=== PATIENT | female | born 1950 | race Hispanic/Latino ===

== ENCOUNTER 2018-12-08 10:23 | Emergency (ER) | payer MEDICARE ==
[~2018-12-08] VITALS: Ht 149.9 cm; Wt 50.8 kg
[2018-12-08] MEDS ORDERED: LISINOPRIL10 MG PO (11:04)
--- NOTE | 2018-12-08 12:04 | Diagnostic Imaging Report ---
CT BRAIN [facility] HISTORY: Dizziness, fall COMPARISON: None. TECHNIQUE: Noncontrast axial scans were obtained from skull base to the vertex. Coronal and sagittal reconstructions obtained from the axial data. One or more of the following dose reduction techniques were used: Automated exposure control, adjustment of the mA and/or kV according to patient size, and/or utilization of iterative reconstruction technique. DISCUSSION: Scalp/Skull: Unremarkable. Brain sulci: Appropriate for patient's age. Ventricles: Normal in size and configuration. No hydrocephalus. Extra-axial spaces: No masses or fluid collections. Parenchyma: Mild periventricular white matter hypodensities are likely chronic microvascular ischemic changes. Otherwise, no mass, hemorrhage, or large vascular territory acute infarct. Dural sinuses: No abnormal densities. Sellar/Suprasellar region: Intact. Skull base: Intact. Incidental findings: Mild carotid siphon calcifications are present. IMPRESSION: 1. No acute intracranial abnormalities. 2. Mild supratentorial chronic microvascular ischemic change. Signed by: Dr. Gary Mcelroy M.D. on 12/08/2018 12:00 PM
--- NOTE | 2018-12-08 12:28 | Diagnostic Imaging Report ---
Radiographs of the sacrum/coccyx - 3 views HISTORY: Pain COMPARISON: None available. FINDINGS: Bones: Suspected nondisplaced fracture through the inferior aspect of the coccyx. Osseous alignment is within normal limits. Joints: Scattered degenerative change. No osseous erosion. Pseudarthrosis on the right at the lumbosacral junction. Soft tissues: The soft tissues appear unremarkable. IMPRESSION: Suspected nondisplaced fracture through the inferior aspect of the coccyx. Signed by: Dr. Walter Savgae M.D. on 12/08/2018 12:25 PM
--- NOTE | 2018-12-08 12:29 | Diagnostic Imaging Report ---
Radiographs of the left hip - 2 views HISTORY: Pain COMPARISON: None available. FINDINGS: Bones: No acute displaced fracture. Osseous alignment is within normal limits. Joints: Scattered degenerative change. No osseous erosion. Soft tissues: The soft tissues appear unremarkable. IMPRESSION: Scattered degenerative change. No osseous erosion. Signed by: Dr. Walter Savage M.D. on 12/08/2018 12:25 PM
--- NOTE | 2018-12-08 12:30 | Diagnostic Imaging Report ---
Radiographs of the right foot - 3 views HISTORY: Pain COMPARISON: None available. FINDINGS: Bones: No acute displaced fracture. Osseous alignment is within normal limits. Joints: Scattered degenerative change. No osseous erosion. Postsurgical change at the distal right first metatarsal. Chronic appearing deformity of the fourth and fifth toes. Soft tissues: The soft tissues appear unremarkable. IMPRESSION: Scattered degenerative change. No osseous erosion. Signed by: Dr. Walter Savage M.D. on 12/08/2018 12:27 PM
[2018-12-08 13:11] VITALS: BP 182/87
== END 2018-12-08 13:16 | disposition home or self-care (01) ==
LOC: FSED 10:23
DX: S00.83XA Contusion of other part of head, initial encounter (principal); S70.02XA Contusion of left hip, initial encounter; S90.121A Contusion of right lesser toe(s) without damage to nail, initial encounter; W10.8XXA Fall (on) (from) other stairs and steps, initial encounter; Y93.01 Activity, walking, marching and hiking; Y92.008 Other place in unspecified non-institutional (private) residence as the place of occurrence of the external cause; I10 Essential (primary) hypertension
CPT/HCPCS: 70450; 72220; 99284

== ENCOUNTER → 2019-04-22 | Outpatient (CLI) | payer MEDICARE, OTHER ==
[~2019-04-22] MED LIST: LISINOPRIL10 MG PO
--- NOTE | 2019-04-22 09:56 | Diagnostic Imaging Report ---
Exam: Bone mineral density study. History: 68-year-old female. Comparison: None. Discussion: Evaluation of the left hip and lumbar spine was performed utilizing DEXA Hologic bone densitometer. The study is technically adequate. The patient's fracture risk is compared to an age-matched control. Lumbar spine total bone mineral density: 0.741 gm/cm2, T-score is -2.8, Z-score is -0.9. No previous comparison. Left femoral neck bone mineral density: 0.6-1 g/cm2, T-score is -2.1, Z-score is -0.6. No previous comparison.. Impression: Bone mineralization by WHO Classification using T score is osteoporosis, fracture risk is high. <T score: NL = -1 or higher Osteopenia = -1 to -2.5 Osteoporosis = -2.5 or lower Z score: < - 1.5 concerning for path> Recommendations: Medical evaluation for secondary causes of low bone mineral density may be appropriate. Correlate clinically for the necessity and timing of the next bone mineral density study. National Osteoporosis Foundation recommendations: Initiate therapy to reduce fracture risk in postmenopausal women with -BMD t-scores below -2 by central DXA with no risk factors -BMD t-scores below -1.5 by central DXA with one or more risk factors (first deg relative with hip fracture, prior personal fracture, low body weight, smoking) -A prior vertebral or hip fracture AACE (Clinical Endocrinology) recommends treating the following: Postmenopausal women who have osteoporosis as diagnosed by fragility fractures or t scores -2.5 or below Postmenopausal women who have risk factors (including fh of hip fracture, low body weight, smoking, risk of falling, high bone turnover, advancing age) and borderline low BMD T scores of -1.5 or below Adequate intake of calcium (at least 1200mg/day) and vitamin D (400-800 IU/day). Regular weight bearing and muscle - strengthening exercises Avoid smoking and excessive alcohol Signed by: Reno Mccord on 04/22/2019 9:53 AM
--- NOTE | 2019-05-05 09:28 | Diagnostic Imaging Report ---
#[id number] - MGSCRBIL #BILATERAL DIGITAL SCREENING MAMMOGRAM WITH CAD: 04/22/2019 CLINICAL: Routine screening. Comparison is made to exam dated: 02/05/2017 mammogram - [facility]. Current study contains 4 films. There are scattered fibroglandular elements in both breasts. Current study was also evaluated with a Computer Aided Detection (CAD) system. Benign appearing calcifications are noted bilaterally. No significant masses, calcifications, or other findings are seen in either breast. IMPRESSION: BENIGN There is no mammographic evidence of malignancy. A 1 year screening mammogram is recommended. The patient will be notified by letter of the results. PAPITO VALLEJO M.D. ct/penrad:05/01/2019 10:21:54 Records Clerk: Lily MEIER)([place]), [facility] letter sent: Normal Exam Mammogram BI-RADS: 2 Benign
== END ==
LOC: DX 08:37
DX: Z12.31 Encounter for screening mammogram for malignant neoplasm of breast (principal); M89.9 Disorder of bone, unspecified; Z78.0 Asymptomatic menopausal state
CPT/HCPCS: 77067; 77080

== ENCOUNTER 2023-01-23 10:04 | Inpatient (IN) | payer MEDICARE, OTHER ==
[~2023-01-23] VITALS: Ht 149.9 cm; Wt 54.4 kg
[2023-01-23] MEDS ORDERED: FAMOTIDINE 20 MG/2 ML VIAL IV STA (11:19)
[2023-01-23] MEDS ORDERED: ONDANSETRON HCL INJ 2MG/ML 2ML 2 MG/ML VIAL IV STA (11:19)
[2023-01-23] MEDS ORDERED: SODIUM CHLORIDE 0.9% 1000ML 1,000 ML IV STA (11:19)
[2023-01-23 11:27] LABS: BASOPHILS # (AUTO) 0.1 (0.0-0.1); BASOPHILS % 0.6 % (0.0-1.0); EOSINOPHILS % 0.4 % (0.0-6.0); HEMATOCRIT 38.3 % (34.2-44.1); HEMOGLOBIN 14.2 g/dL (12.0-16.0); LYMPHOCYTES # (AUTO) 1.8 (1.0-3.2); LYMPHOCYTES % 22.3 % (18.0-39.1); MEAN CORPUSCULAR HEMOGLOBIN 29.6 pg (28-32); MEAN CORPUSCULAR HGB CONC 37.1 g/dL (31-35); MONOCYTES # (AUTO) 0.9 (0.2-0.8); MONOCYTES % 10.5 % (4.4-11.3); NEUTROPHILS # (AUTO) 5.4 (2.1-6.9); NEUTROPHILS % 65.7 % (38.7-80.0); PLATELET COUNT 273 x10e3/uL (140-360); RED BLOOD COUNT 4.79 x10e6/uL (3.6-5.1); RED CELL DISTRIBUTION WIDTH 11.7 % (11.7-14.4)
[2023-01-23] MEDS ORDERED: LIDOCAINE VISC 2% SOLN 15 ML UDC PO ONE (11:30)
[2023-01-23 11:36] LABS: ALBUMIN 4.4 g/dL (3.5-5.0); ALBUMIN/GLOBULIN RATIO 1.3 (0.8-2.0); ANION GAP 15.2 mmol/L (8-16); CALCIUM 9.8 mg/dL (8.4-10.2); CREATININE, SERUM 1.04 mg/dL (0.57-1.11); POTASSIUM 3.2 mmol/L (3.5-5.1)
[2023-01-23] MEDS ORDERED: IOPAMIDOL 370 MG/ML 100 ML INFUS..BTL INJ ONE (11:44)
[2023-01-23 13:30] LABS: CLARITY,URINE CLEAR (CLEAR); COLOR,URINE YELLOW (YELLOW); KETONES,URINE NEGATIVE (NEGATIVE); LEUKOCYTE ESTERASE ,URINE NEGATIVE (NEGATIVE); NITRITE,URINE NEGATIVE (NEGATIVE); PROTEIN,URINE DIPSTICK NEGATIVE (NEGATIVE); URINE UROBILINOGEN 0.2 mg/dL (0.2 - 1)
[2023-01-23] MEDS ORDERED: SODIUM CHLORIDE 0.9% 1000ML 1,000 ML IV SCH (13:30)
[2023-01-23] MEDS ORDERED: SODIUM CHLORIDE FLUSH 10 ML SYR INJ PRN (13:30)
[2023-01-23 13:34] LABS: BACTERIA,URINE FEW /HPF; EPITHELIAL CELLS,URINE FEW /LPF; WBC,URINE (MAN) 0-5 /HPF (0-5)
[2023-01-23] MEDS: ONDANSETRON HCL INJ 2MG/ML 2ML 2 MG/ML VIAL IV PRN (15:25)
[2023-01-23] MEDS: Morphine 2mg Syringe 2 MG/ML SYR IV PRN ×2 (15:26→22:04)
[2023-01-23 18:11] VITALS: BP 164/63; PULSE 69; RESP 18; TEMP 97.7; O2SAT 100
[2023-01-23] MEDS ORDERED: POTASSIUM CHLORIDE 20MEQ/100ML 200 ML IV ONE (18:15)
[2023-01-23] MEDS ORDERED: POTASSIUM CHLORIDE 20 MEQ TAB CR PO ONE ×2 (18:20→20:00)
[2023-01-23 18:55] LABS: LIPASE 38 U/L (8-78); SODIUM 128 mmol/L (136-145)
[2023-01-23] MEDS ORDERED: DEXTROSE 5% 1,000 ML IV STA (19:40)
[2023-01-23 20:00] VITALS: BP 146/63; PULSE 64; RESP 18; TEMP 98; O2SAT 100
[2023-01-23] MEDS ORDERED: DESMOPRESSIN ACETATE 4 MCG/ML VIAL IV ONE (20:00)
[2023-01-23 20:39] VITALS: BP 164/63; PULSE 69; RESP 18; TEMP 97.7; O2SAT 100
[2023-01-24 01:17] VITALS: BP 164/63; PULSE 69; RESP 18; TEMP 97.7; O2SAT 100
[2023-01-24 05:34] LABS: BASOPHILS # (AUTO) 0.1 (0.0-0.1); EOSINOPHILS # (AUTO) 0.1 (0.0-0.4); EOSINOPHILS % 0.8 % (0.0-6.0); HEMATOCRIT 31.9 % (34.2-44.1); HEMOGLOBIN 11.4 g/dL (12.0-16.0); LYMPHOCYTES # (AUTO) 1.4 (1.0-3.2); LYMPHOCYTES % 19.7 % (18.0-39.1); MEAN CORPUSCULAR HEMOGLOBIN 29.5 pg (28-32); MEAN CORPUSCULAR HGB CONC 35.7 g/dL (31-35); MEAN CORPUSCULAR VOLUME 82.4 fL (81-99); MONOCYTES # (AUTO) 0.7 (0.2-0.8); MONOCYTES % 10.3 % (4.4-11.3); NEUTROPHILS # (AUTO) 4.8 (2.1-6.9); NEUTROPHILS % 67.8 % (38.7-80.0); PLATELET COUNT 224 x10e3/uL (140-360); RED BLOOD COUNT 3.87 x10e6/uL (3.6-5.1); RED CELL DISTRIBUTION WIDTH 11.6 % (11.7-14.4)
[2023-01-24 05:53] LABS: ANION GAP 10.6 mmol/L (8-16); CALCIUM 8.5 mg/dL (8.4-10.2); CREATININE, SERUM 0.9 mg/dL (0.57-1.11); POTASSIUM 3.6 mmol/L (3.5-5.1)
[2023-01-24 06:16] LABS: MAGNESIUM 1.8 MG/DL (1.3-2.1); PHOSPHORUS 2.5 MG/DL (2.3-4.7)
[2023-01-24] MEDS ORDERED: DEXTROSE 5% 1,000 ML IV ONE (07:37)
[2023-01-24 07:54] VITALS: BP 145/62; PULSE 71; RESP 17; TEMP 97.8; O2SAT 100
[2023-01-24 08:00] VITALS: BP 145/62; PULSE 71; RESP 17; TEMP 97.8; O2SAT 100
[2023-01-24] MEDS ORDERED: POTASSIUM CHLORIDE 20 MEQ TAB CR PO ONE (08:00)
[2023-01-24] MEDS: POLYETHYLENE GLYCOL 3350 17 GM PACK PO SCH (09:00)
[2023-01-24 11:37] VITALS: BP 161/76; PULSE 68; RESP 18; TEMP 97.8; O2SAT 100
[2023-01-24] MEDS ORDERED: DEXTROSE 5% 1,000 ML IV SCH (13:00)
[2023-01-24] MEDS: LOSARTAN POTASSIUM 100 MG TAB PO SCH (14:20)
[2023-01-24] MEDS ORDERED: LOSARTAN POTAS100 MG PO (14:21)
[2023-01-24] MEDS: ONDANSETRON HCL INJ 2MG/ML 2ML 2 MG/ML VIAL IV PRN (15:13)
[2023-01-24] MEDS ORDERED: TRIAMTERENE-HCTZ1 EA PO (16:08)
[2023-01-24 16:39] VITALS: BP 166/63; PULSE 64; RESP 17; TEMP 97.8; O2SAT 100
[2023-01-24] MEDS ORDERED: MAGNESIUM OXIDE 400 MG TAB PO ONE (17:45)
[2023-01-24 20:00] VITALS: BP 164/67; PULSE 63; RESP 20; TEMP 97.8; O2SAT 94
[2023-01-24] MEDS ORDERED: SODIUM CHLORIDE 3% 100 ML IV ONE (20:00)
[2023-01-24] MEDS ORDERED: MELATONIN 5 MG TABLET PO SCH (21:00)
[2023-01-25] VITALS: BP 154/66; PULSE 62; RESP 20; TEMP 97.6; O2SAT 100
[2023-01-25 00:35] VITALS: BP 166/63; PULSE 64; RESP 17; TEMP 97.8; O2SAT 100
[2023-01-25 05:48] LABS: BASOPHILS # (AUTO) 0.1 (0.0-0.1); BASOPHILS % 1.4 % (0.0-1.0); EOSINOPHILS # (AUTO) 0.1 (0.0-0.4); EOSINOPHILS % 2.2 % (0.0-6.0); HEMOGLOBIN 12.2 g/dL (12.0-16.0); LYMPHOCYTES # (AUTO) 1.9 (1.0-3.2); MEAN CORPUSCULAR HEMOGLOBIN 29.4 pg (28-32); MEAN CORPUSCULAR HGB CONC 35.9 g/dL (31-35); MEAN CORPUSCULAR VOLUME 81.9 fL (81-99); MONOCYTES # (AUTO) 0.6 (0.2-0.8); NEUTROPHILS # (AUTO) 3.6 (2.1-6.9); NEUTROPHILS % 55.9 % (38.7-80.0); PLATELET COUNT 225 x10e3/uL (140-360); RED BLOOD COUNT 4.15 x10e6/uL (3.6-5.1); RED CELL DISTRIBUTION WIDTH 11.3 % (11.7-14.4)
[2023-01-25 06:22] LABS: ALBUMIN 3.4 g/dL (3.5-5.0); ALBUMIN/GLOBULIN RATIO 1.3 (0.8-2.0); ANION GAP 10.7 mmol/L (8-16); CALCIUM 8.8 mg/dL (8.4-10.2); CREATININE, SERUM 0.86 mg/dL (0.57-1.11); POTASSIUM 3.7 mmol/L (3.5-5.1)
[2023-01-25 09:44] VITALS: BP 152/83; PULSE 68; RESP 20; TEMP 98.1; O2SAT 100
[2023-01-25] MEDS: POLYETHYLENE GLYCOL 3350 17 GM PACK PO SCH (09:56)
[2023-01-25] MEDS: LOSARTAN POTASSIUM 100 MG TAB PO SCH (09:58)
[2023-01-25 10:00] VITALS: BP 152/83; PULSE 68; RESP 20; TEMP 98.1; O2SAT 100
[2023-01-25 13:13] VITALS: BP 148/72; PULSE 71; RESP 16; TEMP 97.4; O2SAT 100
[2023-01-25 20:00] VITALS: BP 182/76; PULSE 69; RESP 18; TEMP 97.6; O2SAT 100
== END 2023-01-25 20:50 | disposition home or self-care (01) | DRG 641 ==
LOC: ER 10:08 → ERHOLD 13:34 → MED/SURG 18:17
PROVIDERS: ADMIT Internal Medicine; ATTEND Internal Medicine
DX: E87.1 Hypo-osmolality and hyponatremia (principal); E87.6 Hypokalemia; R11.10 Vomiting, unspecified; K59.00 Constipation, unspecified; R33.9 Retention of urine, unspecified; I10 Essential (primary) hypertension; E87.8 Other disorders of electrolyte and fluid balance, not elsewhere classified; Z79.899 Other long term (current) drug therapy; Z90.49 Acquired absence of other specified parts of digestive tract; Z90.710 Acquired absence of both cervix and uterus
CPT/HCPCS: 0223U; 36415; 51700; 74177; 80048; 80053; 81001; 83690; 83735; 83930; 83935; 84100; 84132; 84295; 84443; 84484; 85025; 93005; 99284; J2270; J2405; J2543; J7030; J7070; J7131; Q9967

== ENCOUNTER → 2024-06-18 | Outpatient (REF) | payer MEDICARE, OTHER ==
[~2024-06-18] MED LIST changes: +LOSARTAN POTAS100 MG PO; +TRIAMTERENE-HCTZ1 EA PO
== END ==
LOC: MAMMO 08:36
PROVIDERS: ATTEND Internal Medicine
DX: Z12.31 Encounter for screening mammogram for malignant neoplasm of breast (principal); M81.0 Age-related osteoporosis without current pathological fracture; M25.511 Pain in right shoulder
CPT/HCPCS: 77067; 77080

== ENCOUNTER 2024-09-28 09:00 | Outpatient (RCR) | payer MEDICARE, OTHER | END 2024-10-02 | LOC: PT 09:00 | PROVIDERS: ATTEND Internal Medicine | DX: M86.8X1 Other osteomyelitis, shoulder (principal) ==

== ENCOUNTER 2024-10-26 09:00 | Outpatient (RCR) | payer MEDICARE, OTHER | END 2024-10-30 | LOC: PT 09:00 | PROVIDERS: ATTEND Internal Medicine | DX: M25.511 Pain in right shoulder (principal); M19.011 Primary osteoarthritis, right shoulder; M25.521 Pain in right elbow; X50.0XXA Overexertion from strenuous movement or load, initial encounter ==